=== PATIENT | male | born 1955 | race Caucasian/White ===

== ENCOUNTER 2020-06-26 18:29 | Emergency (ER) | payer BC, OTHER ==
[2020-06-26] MEDS ORDERED: SODIUM BICARBONATE ONE (18:30)
[2020-06-26] MEDS ORDERED: EPINEPHrine 1MG/10ML SYRINGE 1.5IN ONE (18:30)
[2020-06-26] MEDS ORDERED: EPINEPHrine 1MG/10ML SYRINGE 1.5IN As Ordered ONE (18:51)
[2020-06-26 19:01] VITALS: BP 0/0
[2020-06-26] MEDS ORDERED: EPINEPHrine 1MG/10ML SYRINGE 1.5IN IV STA ×7 (19:08)
[2020-06-26] MEDS ORDERED: SODIUM BICARBONATE 8.4% INJ 50 ML SYRINGE IV STA ×3 (19:10)
[2020-06-26] MEDS ORDERED: METAL LOCK LOOP XX ONE (20:36)
== END 2020-06-26 22:00 | disposition expired ==
LOC: M ED 18:29
DX: I46.9 Cardiac arrest, cause unspecified (principal); I10 Essential (primary) hypertension